=== PATIENT | female | born 1960 | race Caucasian/White ===

== ENCOUNTER 2021-09-14 10:22 | Emergency (ER) | payer OTHER ==
[2021-09-14 11:14] LABS: Absolute Lymphocytes (CBC) 1.9 K/uL (0.7-4.9); Basophils % 1.2 % (0-1.3); Hematocrit 38.2 % (36.0-45.0); Lymphocytes % 27.8 % (15.3-44.8); MPV 8.2 fL (7.6-11.3); RBC Red Blood Cell Count 4.59 M/uL (3.86-4.86)
[2021-09-14 11:30] LABS: Albumin 3.8 g/dL (3.4-5.0); Bilirubin Direct 0.1 mg/dL (0-0.2); Bilirubin Total 0.5 mg/dL (0.2-1.0); Potassium 3.8 mmol/L (3.5-5.1); Protein, Total 7.5 g/dL (6.4-8.2)
[2021-09-14 11:34] LABS: Urine Blood 2+ (Negative); Urine Glucose Negative (Negative); Urine Protein 2+ (Negative); Urine pH 8.5 (5.0-7.0)
--- NOTE | 2021-09-14 11:41 | RAD REPORT ---
EXAM DESCRIPTION: CTAbdomen Pelvis W Contrast - 09/14/2021 11:21 am CLINICAL HISTORY: ABD PAIN COMPARISON: No comparisons TECHNIQUE: CT of the abdomen and pelvis with contrast was performed. All CT scans are performed using dose optimization technique as appropriate and may include automated exposure control or mA/KV adjustment according to patient size. FINDINGS: Lower chest: No acute abnormality. Liver: Hepatic steatosis. . Biliary: No biliary ductal dilatation. Stomach: No significant focal abnormality. Duodenum: No significant focal abnormality. Pancreas: No significant abnormality. Spleen: No significant abnormality. Adrenal: No suspicious lesions. Kidney/ureter: 14 mm oval stone in the right renal collecting system. There is adjacent urothelial th ickening likely secondary to infection or inflammation. Retroperitoneum: No retroperitoneal adenopathy. Vascular: No aneurysm. Bowel: No significant focal abnormality. Peritoneum: No ascites or free air. Small fat containing inguinal hernias. Bladder: Grossly unremarkable. Reproductive: No adnexal masses. Bones: No acute fracture. L3-4 fusion. Other: n/a IMPRESSION: Right renal collecting system stone with adjacent urothelial thickening suggesting eithe r infection or inflammation. No hydronephrosis. No other acute findings are identified.
[2021-09-14 12:33] LABS: Urine Bacteria <20 /HPF (<20); Urine Mucus 1+ /HPF (NONE SEEN)
--- NOTE | 2021-09-14 13:11 | ER ---
Nurse's Notes [facility] Name: Cami Neves Age: 61 yrs Sex: Female : 1960 Arrival Date: 09/14/2021 Time: 10:25 Bed 14 Private MD: Diagnosis: UTI/ Urinary tract infection, site not specified;Diarrhea, unspecified Presentation: 09/14 10:32 Chief complaint: Patient states: nausea and diarrhea that began last week. Pt also aa5 reports dizziness and feeling "fainty". Pt reports she is currently taking amoxicillin for sinus infection. Coronavirus screen: diarrhea, nausea. Ebola Screen: No symptoms or risks identified at this time. Initial Sepsis Screen: Does the patient meet any 2 criteria? No. Patient's initial sepsis screen is negative. Does the patient have a suspected source of infection? Yes:. Risk Assessment: Do you want to hurt yourself or someone else? Patient reports no desire to harm self or others. Onset of symptoms was August 2021. 10:32 Method Of Arrival: Ambulatory aa5 10:32 Acuity: TIFFANIE 3 aa5 Historical: - Allergies: 10:34 Macrodantin; aa5 - PMHx: 10:34 prediabetic; Hypercholesterolemia; Hypertensive disorder; Hypothyroidism; cystitis; aa5 - PSHx: 10:34 Radiation to thyroid; back fusion; aa5 - Immunization history:: Client reports receiving the Vishnu \\T\\ Vishnu single-dose vaccine. - Social history:: Smoking status: Patient denies any tobacco usage or history of. Screenin:11 Abuse screen: Denies threats or abuse. Denies injuries from another. Nutritional tc5 screening: No deficits noted. Tuberculosis screening: No symptoms or risk factors identified. Fall Risk None identified. Assessment: 11:55 General: Appears uncomfortable, Behavior is calm, cooperative, appropriate for age. tc5 Pain: Denies pain. GI: pt reports extreme nausea and feeling faint the past couple of days, states she started having some GI issues back in january when she received her covid vaccine, like diarrhea. pt denies diarrhea at this time, but has the nausea and weakness now. Vital Signs: 10:32 BP 175 / 91; Pulse 64; Resp 18 S; Temp 97.2(TE); Pulse Ox 100% on R/A; Weight 61.69 kg aa5 (R); Height 5 ft. 2 in. (157.48 cm) (R); 11:57 BP 163 / 79 Supine; Pulse 57; Resp 16; Pulse Ox 100% ; Pain 0/10; tc5 11:57 BP 156 / 76 Sitting; Pulse 63; Resp 16; Pulse Ox 100% ; Pain 0/10; tc5 11:57 BP 146 / 74 Standing; Pulse 63; Resp 16; Pulse Ox 100% ; Pain 0/10; tc5 10:32 Body Mass Index 24.87 (61.69 kg, 157.48 cm) aa5 ED Course: 10:25 Patient arrived in ED. ds1 10:32 Arm band placed on. aa5 10:33 Triage completed. aa5 10:36 Indy Keller FNP-C is PHCP. kb 10:36 Melba Laughlin MD is Attending Physician. kb 11:08 Note: 20g rt ac and labs collected by ct.. 11:21 CT Abd/Pelvis - IV Contrast Only In Process Unspecified. EDMN 11:54 Spring Hawk, SEBAS is Primary Nurse. tc5 12:54 Urine Microscopic Only Sent. tc5 14:09 No provider procedures requiring assistance completed. IV discontinued, intact, tc5 bleeding controlled, No redness/swelling at site. Pressure dressing applied. 14:10 Patient has correct armband on for positive identification. Bed in low position. Call tc5 light in reach. Administered Medications: 12:57 Drug: NS 0.9% 1000 ml Route: IV; Rate: 1000 ml; Site: left antecubital; tc5 14:10 Follow up: IV Status: Completed infusion; IV Intake: 1000ml tc5 13:31 Drug: Ciprofloxacin 500 mg Route: PO; tc5 14:10 Follow up: Response: No adverse reaction tc5 Intake: 14:10 IV: 1000ml; Total: 1000ml. tc5 Outcome: 13:10 Discharge ordered by . kb 14:10 Discharged to home ambulatory, with family. tc5 14:10 Condition: stable 14:10 Discharge instructions given to patient. 14:11 Patient left the ED. tc5 Signatures: Dispatcher [employer] EDMS Indy Keller FNP-C FNP-Ckb Jones, Susan Rani Friend ds1 Zahra Orozco RN RN aa5 Spring Hawk RN RN tc5 Corrections: (The following items were deleted from the chart) 10:34 10:32 Resp 18bpm; Spontaneous; Temp 97.2F Temporal; aa5 aa5 10:36 10:32 BP 175 / 91; Pulse 64bpm; Resp 18bpm; Spontaneous; Pulse Ox 100% RA; Temp 97.2F aa5 Temporal; aa5
--- NOTE | 2021-09-14 13:11 | EDPHYS ---
Physician Documentation [facility] Name: Cami Neves Age: 61 yrs Sex: Female : 1960 Arrival Date: 09/14/2021 Time: 10:25 Bed 14 Private MD: ED Physician Melba Laughlin HPI: 09/14 10:46 This 61 yrs old Female presents to ER via Ambulatory with complaints of kb Dizziness, Diarrhea, Nausea. 10:46 The patient presents to the emergency department with nausea, diarrhea. Onset: The kb symptoms/episode began/occurred 9 day(s) ago. Possible causes: unknown. The symptoms are aggravated by nothing. The symptoms are alleviated by nothing. Associated signs and symptoms: Pertinent positives: diarrhea, nausea. Severity of symptoms: At their worst the symptoms were moderate in the emergency department the symptoms are unchanged. The patient has not experienced similar symptoms in the past. The patient has not recently seen a physician. Pt reports nausea and diarrhea that started 9 days ago. States she hasn't been able to eat anything besides crackers for the last couple of days. Denies fever. Reports bloating, denies abd pain. Now has intermittent lightheadedness. Historical: - Allergies: 10:34 Macrodantin; aa5 - PMHx: 10:34 prediabetic; Hypercholesterolemia; Hypertensive disorder; Hypothyroidism; cystitis; aa5 - PSHx: 10:34 Radiation to thyroid; back fusion; aa5 - Immunization history:: Client reports receiving the Vishnu \T\ Vishnu single-dose vaccine. - Social history:: Smoking status: Patient denies any tobacco usage or history of. ROS: 10:45 Constitutional: Negative for fever, chills, and weight loss. kb 10:45 Abdomen/GI: Positive for nausea, diarrhea, abdominal distension, Negative for abdominal pain. 10:45 Neuro: Positive for dizziness. 10:45 All other systems are negative. Exam: 10:46 Constitutional: This is a well developed, well nourished patient who is awake, alert, kb and in no acute distress. Head/Face: Normocephalic, atraumatic. ENT: Moist Mucous membranes Cardiovascular: Regular rate and rhythm with a normal S1 and S2. No gallops, murmurs, or rubs. No pulse deficits. Respiratory: Respirations even and unlabored. No increased work of breathing, no retractions or nasal flaring. Abdomen/GI: Soft, non-tender. No distention Skin: Warm, dry with normal turgor. Normal color. MS/ Extremity: Pulses equal, no cyanosis. Neurovascular intact. Full, normal range of motion. Neuro: Awake and alert, GCS 15, oriented to person, place, time, and situation. Moves all extremities. Normal gait. Psych: Awake, alert, with orientation to person, place and time. Behavior, mood, and affect are within normal limits. Vital Signs: 10:32 BP 175 / 91; Pulse 64; Resp 18 S; Temp 97.2(TE); Pulse Ox 100% on R/A; Weight 61.69 kg aa5 (R); Height 5 ft. 2 in. (157.48 cm) (R); 11:57 BP 163 / 79 Supine; Pulse 57; Resp 16; Pulse Ox 100% ; Pain 0/10; tc5 11:57 BP 156 / 76 Sitting; Pulse 63; Resp 16; Pulse Ox 100% ; Pain 0/10; tc5 11:57 BP 146 / 74 Standing; Pulse 63; Resp 16; Pulse Ox 100% ; Pain 0/10; tc5 10:32 Body Mass Index 24.87 (61.69 kg, 157.48 cm) aa5 MDM: 10:36 Patient medically screened. kb 10:45 Data reviewed: vital signs, nurses notes. Data interpreted: Pulse oximetry: on room air kb is 100 %. Interpretation: normal. 10:45 Differential diagnosis: Nonspecific abd pain, gastritis, diverticulitis, viral kb gastroenteritis, bowel obstruction. 12:56 Counseling: I had a detailed discussion with the patient and/or guardian regarding: the kb historical points, exam findings, and any diagnostic results supporting the discharge/admit diagnosis, lab results, radiology results, the need for outpatient follow up, a family practitioner, to return to the emergency department if symptoms worsen or persist or if there are any questions or concerns that arise at home. 09/14 10:37 Order name: Basic Metabolic Panel; Complete Time: 11:38 kb 09/14 10:37 Order name: CBC with Diff; Complete Time: 11:22 kb 09/14 10:37 Order name: Hepatic Function; Complete Time: 11:38 kb 09/14 10:37 Order name: Lipase; Complete Time: 11:38 kb 09/14 11:26 Order name: SARS-COV-2 RT PCR; Complete Time: 12:27 EDMS 09/14 10:37 Order name: CT Abd/Pelvis - IV Contrast Only; Complete Time: 11:56 kb 09/14 11:33 Order name: Urine Dipstick-Ancillary; Complete Time: 11:38 EDMS 09/14 12:03 Order name: Urine Microscopic Only kb 09/14 12:03 Order name: Urine Microscopic Only; Complete Time: 12:34 EDMS 09/14 12:34 Order name: Urine Culture EDMS 09/14 12:52 Order name: CREATININE WHOLE BLOOD; Complete Time: 12:55 EDMS 09/14 10:37 Order name: IV Saline Lock; Complete Time: 12:54 kb 09/14 10:37 Order name: Labs collected and sent; Complete Time: 12:54 kb 09/14 10:37 Order name: Orthostatics; Complete Time: 12:54 kb Administered Medications: 12:57 Drug: NS 0.9% 1000 ml Route: IV; Rate: 1000 ml; Site: left antecubital; tc5 14:10 Follow up: IV Status: Completed infusion; IV Intake: 1000ml tc5 13:31 Drug: Ciprofloxacin 500 mg Route: PO; tc5 14:10 Follow up: Response: No adverse reaction tc5 Disposition Summary: 09/14/21 13:10 Discharge Ordered Location: Home kb Condition: Stable kb Diagnosis - UTI/ Urinary tract infection, site not specified kb - Diarrhea, unspecified kb Followup: kb - With: Emergency Department - When: As needed - Reason: Worsening of condition Followup: kb - With: Private Physician - When: 2 - 3 days - Reason: Recheck today's complaints, Continuance of care, Re-evaluation by your physician Discharge Instructions: - Discharge Summary Sheet kb - Urinary Tract Infection, Adult, [id number] kb Forms: - Medication Reconciliation Form kb - Thank You Letter kb - Antibiotic Education kb - Prescription Opioid Use kb Prescriptions: - Cipro 500 mg Oral Tablet - take 1 tablet by ORAL route every 12 hours for 7 days; 14 tablet; Refills: 0, kb Product Selection Permitted Addendum: 09/15/2021 14:19 Co-signature as Attending Physician, Melba Laughlin MD I agree with the assessment and s p3 plan of care. Signatures: Dispatcher [employer] EDMS Indy Keller, EQUIPMENT MAINTENANCE ENGINEER-C EQUIPMENT MAINTENANCE ENGINEER-Zahra Gayle, RN RN aa5 Melba Laughlin MD MD sp3 Spring Hawk RN RN tc5 Corrections: (The following items were deleted from the chart) 09/14 11:26 10:37 CORONAVIRUS+.BRZ ordered. EDNH EDMS
[2021-09-14] MEDS ORDERED: NA CHLORIDE 0.9% 1,000 ML ONE (13:20)
[2021-09-14] MEDS ORDERED: CIPROFLOXACIN HCL 500 MG TAB ONE (13:56)
[2021-09-14 14:25] VITALS: TEMP 97.2; O2SAT 100
[2021-09-14 14:28] VITALS: BP 146/74
== END 2021-09-14 14:11 | disposition home or self-care (01) ==
LOC: ER 10:22
DX: N39.0 Urinary tract infection, site not specified (principal); I10 Essential (primary) hypertension; Z20.822 Contact with and (suspected) exposure to COVID-19; Z88.8 Allergy status to other drugs, medicaments and biological substances
CPT/HCPCS: 85025; 87086; 80048; 36415; 82565; 80076; 83690; 74177; 96360; 99284; U0003; Q9967; J7030; 81003; 81015; 87088

== ENCOUNTER 2021-09-22 10:46 | Day surgery (SDC) | payer OTHER ==
--- NOTE | 2021-09-22 11:34 | RAD REPORT ---
EXAM DESCRIPTION: Michelle Garcia (2 Views)09/22/2021 11:10 am CLINICAL HISTORY: Hypertension/preop COMPARISON: 2009 FINDINGS: The lungs appear clear of acute infiltrate. The heart is normal size IMPRESSION: No acute abnormalities displayed
[2021-09-22] MEDS ORDERED: CEFAZOLIN/NS 1gm 1 GM/50 ML BAG ONE (12:33)
[2021-09-22] MEDS ORDERED: NA CHLORIDE 0.9% 1,000 ML ONE ×2 (12:33→12:34)
[2021-09-22] MEDS ORDERED: CELECOXIB 100 MG CAPSULE ONE (12:54)
[2021-09-22] MEDS ORDERED: ACETAMINOPHEN 500 MG TAB ONE (12:54)
[2021-09-22] MEDS ORDERED: LIDOCAINE 1% MPF 5 ML VIAL ONE (15:21)
[2021-09-22] MEDS ORDERED: FENTANYL CITR 100 MCG/2 ML ONE (15:21)
[2021-09-22] MEDS ORDERED: propofoL 200 MG/20 ML VIAL IV ONE (15:21)
[2021-09-22] MEDS ORDERED: MIDAZOLAM HCL 2 MG/2 ML INJ ONE (15:21)
[2021-09-22] MEDS ORDERED: dexAMETHasone 10 MG/ML VIAL ONE (15:44)
[2021-09-22] MEDS ORDERED: KETOROLAC 30 MG/ML INJ ONE (15:44)
[2021-09-22 15:50] VITALS: O2SAT 100
[2021-09-22] MEDS ORDERED: ONDANSETRON 4 MG/2 ML VIAL ONE (15:56)
[2021-09-22] MEDS ORDERED: CODEINE 30MG/APAP 300MG TAB PO PRN (16:39)
[2021-09-22] MEDS ORDERED: PHENAZOPYRIDINE 100MG TAB PO ONE ×2 (16:39→17:32)
[2021-09-22 16:48] VITALS: BP 131/80; TEMP 97.6
[2021-09-22] MEDS ORDERED: CODEINE 30MG/APAP 300MG TAB ONE (17:31)
--- NOTE | 2021-09-22 18:55 | RAD REPORT ---
EXAM DESCRIPTION: RAD - Urethrocystogrphy Retrograde - 09/22/2021 3:52 pm CLINICAL HISTORY: RIGHT STENT COMPARISON: Abdomen Pelvis W Contrast dated 09/14/2021 FINDINGS: Eight intraoperative fluoroscopic images were submitted. This shows cannulation of the rig ht ureter and injection of contrast. 11 mm filling defect in the right renal collecting system consis tent with a renal calculus. A right ureteral stent was placed. Fusion hardware in the spine. IMPRESSION: Right ureteral stent placement.
--- NOTE | 2021-09-23 02:31 | OP ---
Date of Procedure: 09/22/2021 Surgeon: ANDREW WOOD Preoperative Diagnoses: 1.Intractable nausea and vomiting. 2.Right 14 mm ureteropelvic junction obstructing calculus. 3.Right hydronephrosis. 4.Right lower quadrant and right flank pain. Postoperative Diagnoses: 1.Intractable nausea and vomiting. 2.Right 14 mm ureteropelvic junction obstructing calculus. 3.Right hydronephrosis. 4.Right lower quadrant and right flank pain. Principal Procedures: 1.Cystoscopy with right retrograde pyelography. 2.Right ureteral stent placement. Indication For Procedure: Ms. eNves saw me yesterday in the Urology Clinic with intractable nausea and vomiting that had lasted for several days, associated with the presence of a 14 mm obstructing U PJ calculus. She had associated right lower quadrant pain and occasionally right flank pain and give n the intractability of her nausea and vomiting and potential for dehydration and acute kidney injury , I recommended stent placement. Also, given the size of the calculus in preparation for definitive treatment, either via ESWL or ureteroscopy with laser lithotripsy. Procedure In Detail: The patient was consented in the preoperative holding area before being transfe rred to the operative suite where general anesthesia was induced. She was given Ancef IV antimicrobi al prophylaxis and pneumo boots were provided for DVT prophylaxis. She was placed in the lithotomy p osition, padded and secured to the table appropriately. Her genitalia were prepped using Hibiclens a nd draped in standard fashion. The case was begun using a 22-Ethiopian rigid cystoscope to traverse the urethra and into the bladder with ease. The bladder was briefly surveyed and no mucosal lesions, fo reign bodies, or stones were noted. The ureteral orifices were orthotopic in location and the right ureteral orifice was cannulated using the tip of a 5-Ethiopian ureteral access catheter. Right retrograde pyelography: Using a 70:30 mixture of Omnipaque and saline, contrast was injected via the 5-Ethiopian ureteral access catheter and did propagate up a ureter in a slow fashion before point of obstruction was encountered at the level of the UPJ and a radiopaque calculus was visible there. There was evident pelvocaliect asis. As a result, I passed a Sensor wire into the upper pole of the kidney as observed fluoroscopic ally and over the wire, passed a 6-Ethiopian by 24 cm double-J right ureteral stent with a coil observed fluoroscopically within the renal pelvis and 1 cystoscopically formed within the bladder. The [facility] was then decompressed of fluid and urine, and the patient was taken out of the lithotomy position. She was then awakened from general anesthesia, transferred to a stretcher, and then transferred to the recovery room in good condition. Complications: None. Discharge Disposition: She should be scheduled for right ESWL at the next available ESWL date in ord er to definitively manage her calculus, which is visible fluoroscopically and evident on plain film. CANDICE/MODL Voice ID: [id number] Report ID: [id number]
--- NOTE | 2021-09-23 16:10 | EKG ---
Test Date: 2021-09-22 Test Time: 10:45:44 Technical Support Associate: VITOR MEASUREMENT RESULTS: Intervals: Rate: 62 LA: 204 QRSD: 78 QT: 440 QTc: 446 Hannibal: P: 33 LA: 204 QRS: 16 T: 28 INTERPRETIVE STATEMENTS: Normal sinus rhythm Nonspecific T wave abnormality Abnormal ECG Compared to ECG 04/17/2010 08:25:01 T-wave abnormality now present Electronically Signed On 09-23-21 16:07:20 CDT by Bang Garg
== END 2021-09-22 17:30 | disposition home or self-care (01) ==
LOC: OR 10:46
PROVIDERS: ATTEND Urology
PROC: 0T768DZ Dilation of Right Ureter with Intraluminal Device, Via Natural or Artificial Opening Endoscopic (ICD-10-PCS; principal; 2021-09-22 12:45)
DX: N13.2 Hydronephrosis with renal and ureteral calculous obstruction (principal); R10.31 Right lower quadrant pain; R11.2 Nausea with vomiting, unspecified; Z20.822 Contact with and (suspected) exposure to COVID-19
CPT/HCPCS: 93005; 82947 ×2; 71046; 74450; 51610; 52332; U0003; J2704; J2250; J3010; J1100; J0690; J7030 ×2; J2405

== ENCOUNTER 2021-10-06 06:38 | Day surgery (SDC) | payer OTHER ==
[2021-10-06] MEDS ORDERED: NA CHLORIDE 0.9% 1,000 ML ONE ×2 (06:59→09:03)
[2021-10-06] MEDS ORDERED: CEFAZOLIN/NS 1gm 0 GM/0 ML BAG ONE (06:59)
[2021-10-06] MEDS ORDERED: dexAMETHasone 10 MG/ML VIAL ONE (07:10)
[2021-10-06] MEDS ORDERED: ONDANSETRON 4 MG/2 ML VIAL ONE (07:10)
[2021-10-06] MEDS ORDERED: FENTANYL CITR 100 MCG/2 ML ONE (07:10)
[2021-10-06] MEDS ORDERED: LIDOCAINE 2% MPF 5 ML VIAL ONE (07:10)
[2021-10-06] MEDS ORDERED: KETOROLAC 30 MG/ML INJ ONE (07:10)
[2021-10-06] MEDS ORDERED: propofoL 200 MG/20 ML VIAL IV ONE (07:10)
[2021-10-06] MEDS ORDERED: MIDAZOLAM HCL 2 MG/2 ML INJ ONE (07:10)
[2021-10-06 07:19] LABS: Protime INR 1.07
[2021-10-06 07:25] VITALS: O2SAT 100
[2021-10-06 08:12] LABS: Urine Appearance CLOUDY (Clear); Urine Blood 3+ (Negative); Urine Color ORANGE (Yellow); Urine Glucose TRACE (Negative); Urine Protein 3+ (Negative); Urine Specific Gravity 1.025 (1.005-1.030)
[2021-10-06 08:14] LABS: Urine Bilirubin NEGATIVE (Negative); Urine Microscopic Reflex ORDER UMIC
[2021-10-06 08:24] LABS: Urine Bacteria >50 /HPF (<20); Urine RBC >50 /HPF (NONE SEEN); Urine Urothelial Cells <5 /HPF (NONE SEEN)
[2021-10-06] MEDS ORDERED: CEFTRIAXONE 1 GM/NS 50 ML 1 GM/50 ML BAG IV ONE (09:00)
[2021-10-06] MEDS: AMPICILLIN SODIUM 2 GM in NA CHLORIDE 0.9% 100 ML IVPB ONE ×2 (09:00→09:22)
[2021-10-06] MEDS ORDERED: EPHEDRINE SULF 50 MG/ML VIAL ONE (09:03)
[2021-10-06] MEDS ORDERED: Phenylephrine HCl 10 MG/ML 1 ML VIAL ONE (09:08)
[2021-10-06] MEDS ORDERED: NS 0.9% VIAL 10 ML ONE (09:08)
[2021-10-06] MEDS: MEPERIDINE HCL 25 MG/ML SYR ONE ×2 (09:43→09:48)
[2021-10-06] MEDS ORDERED: HYDROCODONE/APAP 5/325 MG TAB PO PRN (09:47)
[2021-10-06] MEDS ORDERED: PHENAZOPYRIDINE 100MG TAB PO ONE ×2 (09:47→10:48)
[2021-10-06] MEDS: HYDROMORPHONE HCL 1 MG/ML INJ ONE ×2 (09:56→10:08)
[2021-10-06] MEDS ORDERED: HYDROCODONE/APAP 5/325 MG TAB ONE (10:48)
[2021-10-06 10:56] VITALS: TEMP 97.1
[2021-10-06 13:01] VITALS: BP 120/70
--- NOTE | 2021-10-07 12:33 | OP ---
Date of Procedure: 10/06/2021 Surgeon: ANDREW WOOD Preoperative Diagnoses: 1.Right nephrolithiasis, 14 mm. 2.Status post right ureteral stent placement. Postoperative Diagnoses: 1.Right nephrolithiasis, 14 mm. 2.Status post right ureteral stent placement. Principal Procedure: 1.Right ESWL/extracorporeal shock wave lithotripsy. 2.Cystoscopy and right ureteral stent extraction. Indication For Procedure: Ms. Neves presented to the Urology Clinic with intractable nausea, vomit ing, and anorexia, which was managed by placement of a stent. While this relieved her significant an orexia, she had unfortunate development of severe pain associated with the presence of the stent. Ef forts to manage her discomfort were made as an outpatient in addition to Tylenol with codeine that wa s provided postoperatively, by adding Toradol orally as well as tramadol for pain management. Despit e this, while no additional calls were made to the clinic, indicative of the pain being uncomfortable , on preoperative evaluation today, the patient and her indicated that she has remained signi ficantly miserable with the stent. As a result, extensive counseling was held with them with regard to options for management of her circumstance going forward. I explained that while I would typicall y recommend leaving the stent for at least a few days after the shockwave lithotripsy, so that we jacqueline ht confirm adequate fragmentation of the stone and also prevent the development of Steinstrasse, give n her misery with the stent, at her discretion, we could remove it today, recognizing she likely will have a significant degree of ureteral dilation that has already occurred and likely would do fine wi thout need for or without significant risk of Steinstrasse developing. I did explain to the patient and her , the risk that she could develop Steinstrasse and might need either emergent return f or a stent placement or percutaneous nephrostomy tube placement, which would likely be more beneficia l or preferential to her given the degree of stent discomfort. The majority of her stent discomfort they believe was likely related to her history of interstitial cystitis. Additionally, on preoperati ve urine cultures that were obtained within the last 2 weeks, they were unremarkable for infection, a nd today's urinalysis was slightly indeterminate with negative nitrites, 1+ leukocyte esterase, but s ignificant white blood cells. As a result, instead of Ancef, I recommended ceftriaxone be given to ronnie patterson her antimicrobial spectrum coverage in addition to 2 g of ampicillin to be given for the grzegorz tial for enterococcus in her urine. I did explain that given the indeterminate nature of her urinaly sis, we cannot be 100% certain whether any infection existed and the consequence would be the need to cancel and reschedule the case versus proceed with the plan to expand the antimicrobial coverage as recommended. They expressed that they understood the risks of infection associated with proceeding a t this point and elected to proceed instead of cancelling and re-scheduling. I felt the risk was rel atively minimal given the antimicrobial coverage that would be provided. Procedure In Detail: The patient was consented in the preoperative holding area before being transfe rred to the operative suite, where general anesthesia was induced. She was given ceftriaxone 1 g IV antimicrobial prophylaxis and ampicillin 2 g IV antimicrobial prophylaxis. Pneumo boots were provide d for DVT prophylaxis. She was placed supine on the shockwave lithotripsy table, padded and secured appropriately. The case was begun, identifying the large calculus that was radio opaque and in the r egion of the stent coil in the renal pelvis. As a result, the stone was adequately targeted, and lance ckwave lithotripsy was initiated. The power was slowly ramped up over the course of approximately 40 0 shocks, to a maximum power of 7, and the stone was noted to quickly fragment to dust observed withi n approximately 500 to 1000 shocks. The dust cloud was then further fragmented to ensure the small s ize of any stone fragments sufficient to pass over the course of the additional 1500 shocks for a tot al of 2500 shocks total delivered. Once shockwave lithotripsy was concluded, we then placed the conrado ent in a frog-leg position, and prepped her genitalia using Hibiclens. She was draped in standard fa shion, and a 22-Icelandic rigid cystoscope was used to traverse the urethra and into the bladder. The r ight ureteral stent was visualized and grasped using an alligator grasper and then delivered via the meatus with both coils intact. The patient's bladder was then decompressed of fluid and urine, and s he was awakened from general anesthesia. She was then transferred to a stretcher and then to the rec overy room in good condition. Complications: None immediately apparent. Discharge Disposition: She will be discharged with an additional prescription for ciprofloxacin anti microbial for the next 7 days as broad-spectrum antimicrobial prophylaxis while we await the results of the definitive cultures. She will then follow up in Urology Clinic for a repeat KUB to ensure jonathan arance of the stone burden and to discuss management of her voiding dysfunction/interstitial cystitis issues. CANDICE/REGGIE Voice ID: [id number] Report ID: [id number]
== END 2021-10-06 12:20 | disposition home or self-care (01) ==
LOC: OR 06:38
PROVIDERS: ATTEND Urology
PROC: 0TP98DZ Removal of Intraluminal Device from Ureter, Via Natural or Artificial Opening Endoscopic (ICD-10-PCS; 2021-10-06)
PROC: 0TF3XZZ Fragmentation in Right Kidney Pelvis, External Approach (ICD-10-PCS; principal; 2021-10-06 07:30)
DX: N20.0 Calculus of kidney (principal); Z20.822 Contact with and (suspected) exposure to COVID-19; E11.9 Type 2 diabetes mellitus without complications; I10 Essential (primary) hypertension; E03.9 Hypothyroidism, unspecified; K21.9 Gastro-esophageal reflux disease without esophagitis
CPT/HCPCS: 87088; 87086; 36415; 85610; 82947; 50590; 52310; U0002; J2704; J2370; J2250; J3010; J1100; J2175; J1170; J7030 ×2; J0696; J2405; J0290; 81003; 81015; J0690